=== PATIENT | female | born 1980 | race African-American/Black ===

== ENCOUNTER 2018-07-15 15:17 | Inpatient (IN) | payer MEDICAID ==
[~2018-07-15] VITALS: Ht 165.1 cm; Wt 108.9 kg
--- NOTE | 2018-07-15 15:55 | Emergency Room Report ---
History of Present Illness General Chief Complaint: Vaginal Source: Patient Present Illness HPI 38-year-old female patient presents ER complaining of vaginal discharge and headache. Patient reports vaginal discharge is been present for the past few days. Reports history of similar symptoms in the past, states that her present 2 weeks ago before becoming resolved. Reports no treatment at that time. Reports pain with urinating. Reports pruritus. Reports discharge weight. Denies hematuria. Denies recent sexual activity for "several months". Denies fever, chest pain, shortness of breath, abdominal pain, flank pain. Reports foul-smelling odor. Also complaining of headache during this time for the past few days. Denies neck pain. Denies fever. Reports headache is frontal sinuses. Denies vision changes. Denies vomiting. Denies photophobia or phonophobia. Denies runny nose. patient also requesting her blood sugar rechecked, states she is prediabetic.States was diagnosed "years ago" and has not been taking her medications. States was taking Metformin. Allergies: Coded Allergies: No Known Allergies (Unverified , 07/15/18) Patient History Past Medical History: see triage record Last Menstrual Period: 05/2018 Now: No Reviewed Nursing Documentation: PMH: Agreed; PSxH: Agreed Nursing Documentation-PMH Past Medical History: No History, Except For Hx Diabetes: Yes - Pre diabetic Review of Systems All Other Systems: negative except mentioned in HPI Physical Exam Vital Signs Date Time Temp Pulse Resp B/P (MAP) Pulse Ox O2 Delivery O2 Flow Rate FiO2 07/15/18 15:36 98.4 99 20 153/97 95 Room Air Sp02 EP Interpretation: reviewed, normal General Appearance: well appearing, no apparent distress, alert, GCS 15, non- toxic Head: normocephalic, atraumatic Eyes: bilateral eye normal inspection, bilateral eye PERRL ENT: hearing grossly normal, normal pharynx, no angioedema, normal voice, uvula midline, moist mucus membranes Neck: full range of motion Respiratory: lungs clear, normal breath sounds, no rhonchi, no respiratory distress, no accessory muscle use, no wheezing, speaking full sentences Cardiovascular #1: regular rate, rhythm, no edema Gastrointestinal: non tender, soft, no mass, non-distended, no guarding, no rebound Genitourinary: no CVA tenderness Musculoskeletal: back normal, digits/nails normal, gait/station normal, normal range of motion, non-tender Neurologic: alert, oriented x3, responsive, panel sewer III-XII nml as tested, motor strength/tone normal, SLR negative, sensory intact, cerebellar normal, normal gait, speech normal Psychiatric: mood/affect normal Skin: no rash Medical Decision Making PA Attestation Dr. Funez is my supervising Physician whom patient management has been discussed with. Diagnostic Impression: Primary Impression: Uncontrolled diabetes mellitus Additional Impressions: Elevated lipase Yeast infection ER Course Pt presents to ED c/o vaginal discharge and headache. DDX considered but are not limited to cystitis, pyelonephritis, STI, vaginitis, , migraine, cluster CASTANO, tension CASTANO, UTI, diabetes complications. No abdominal tenderness to palpation, negative classifier operator, negative Thibodeaux, negative Rovsing, low suspicion for cholecystitis or appendicitis, does not require imaging or labs at this time. cranial nerves intact as tested, no focal deficits, low suspicion for intracranial pathology requiring CT head at this time. Normal skin turgor, moist membranes, cap refill less than 2 seconds, no circumoral pallor, low suspicion for anemia. VITAL SIGNS are WNL, patient is afebrile. Ordered UA, labs and fluids. ER COURSE Accucheck 326, provided patient with IV fluids. cranial nerves intact as tested, no focal neuro deficits, likely tension headache, right patient with pain medication in the ER. clinical history consistent with yeast infection, will provide patient with consult in the ER. No abdominal TTP, negative Rovsing, negative Thibodeaux, does not require CT or imaging of abdomen at this time. UA results show no signs of infection, many epithelial cells, no dysuria or hematuria, do not indicate UTI, will treat with abx. Urine negative CBC unremarkable, no elevation of WBCs, H&H normal CMP shows elevated blood glucose, electrolytes WNL Lipase elevated 1243, possible pancreatitis vs diabetic complication. I discuss patient with Dr. Funez, Will admit patient for uncontrolled diabetes and elevated lipase levels. Will provide patient with Rocephin and Azithromycin to cover for possible infection. Provided patient with second unit of IV fluids and metformin in the ER. repeat Accu-Chek shows blood sugar decreasing. Patient reports symptoms improved while in the ER. Patient to be admitted to Dr. Dumont. - Please note that this Emergency Department Report was dictated using [employer] electrical systems specialist technology software, occasionally this can lead to erroneous entry secondary to interpretation by the dictation equipment.Pt Labs Test 07/15/18 16:00 White Blood Count 7.9 K/UL (4.8-10.8) Red Blood Count 5.12 M/UL (4.20-5.40) Hemoglobin 14.3 G/DL (12.0-16.0) Hematocrit 41.7 % (37.0-47.0) Mean Corpuscular Volume 81 FL (80-99) Mean Corpuscular Hemoglobin 27.8 PG (27.0-31.0) Mean Corpuscular Hemoglobin Concent 34.2 G/DL (32.0-36.0) Red Cell Distribution Width 11.6 % (11.6-14.8) Platelet Count 258 K/UL (150-450) Mean Platelet Volume 8.8 FL (6.5-10.1) Neutrophils (%) (Auto) 53.4 % (45.0-75.0) Lymphocytes (%) (Auto) 38.9 % (20.0-45.0) Monocytes (%) (Auto) 3.7 % (1.0-10.0) Eosinophils (%) (Auto) 2.0 % (0.0-3.0) Basophils (%) (Auto) 2.0 % (0.0-2.0) Urine Color Pale yellow Urine Appearance Clear Urine pH 5 (4.5-8.0) Urine Specific [place] 1.015 (1.005-1.035) Urine Protein Negative (NEGATIVE) Urine Glucose (UA) 4+ (NEGATIVE) Urine Ketones 1+ (NEGATIVE) Urine Blood 1+ (NEGATIVE) Urine Nitrite Negative (NEGATIVE) Urine Bilirubin Negative (NEGATIVE) Urine Urobilinogen Normal MG/DL (0.0-1.0) Urine Leukocyte Esterase Negative (NEGATIVE) Urine RBC 2-4 /HPF (0 - 2) Urine WBC 0-2 /HPF (0 - 2) Urine Squamous Epithelial Cells Many /LPF (NONE/OCC) Urine Bacteria Moderate /HPF (NONE) Urine HCG, Qualitative Negative (NEGATIVE) Sodium Level 135 MMOL/L (136-145) Potassium Level 3.7 MMOL/L (3.5-5.1) Chloride Level 100 MMOL/L (98-107) Carbon Dioxide Level 26 MMOL/L (21-32) Anion Gap 9 mmol/L (5-15) Blood Urea Nitrogen 10 mg/dL (7-18) Creatinine 0.9 MG/DL (0.55-1.30) Estimat Glomerular Filtration Rate > 60 mL/min (>60) Glucose Level 325 MG/DL (74-106) Calcium Level 9.5 MG/DL (8.5-10.1) Total Bilirubin 0.2 MG/DL (0.2-1.0) Aspartate Amino Transf (AST/SGOT) 27 U/L (15-37) Alanine Aminotransferase (ALT/SGPT) 48 U/L (12-78) Alkaline Phosphatase 106 U/L (46-116) Total Protein 7.7 G/DL (6.4-8.2) Albumin 3.7 G/DL (3.4-5.0) Globulin 4.0 g/dL Albumin/Globulin Ratio 0.9 (1.0-2.7) Lipase 1243 U/L (73-393) Last Vital Signs Date Time Temp Pulse Resp B/P (MAP) Pulse Ox O2 Delivery O2 Flow Rate FiO2 07/15/18 15:36 98.4 99 20 153/97 95 Room Air Disposition: ADMITTED INPATIENT Condition: Serious Scripts No Active Prescriptions or Reported Meds Boris Ocampo Jul 15, 2018 15:55
[2018-07-15] MEDS ORDERED: Fluconazole 100mg tab ORAL ONE (16:00)
[2018-07-15] MEDS ORDERED: Acetaminophen 500mg (ES) tab ORAL ONE (16:00)
[2018-07-15 16:37] LABS: APPEARANCE,URINE CLEAR; BILIRUBIN, URINE NEGATIVE (NEGATIVE); COLOR,URINE PALE YELLOW; GLUCOSE, URINE (UA) 4+ (NEGATIVE); KETONES,URINE 1+ (NEGATIVE); LEUKOCYTE ESTERASE ,URINE NEGATIVE (NEGATIVE); NITRITE,URINE NEGATIVE (NEGATIVE); PH,URINE 5 (4.5-8.0); PROTEIN,URINE NEGATIVE (NEGATIVE); UROBILINOGEN,URINE NORMAL MG/DL (0.0-1.0)
[2018-07-15 16:44] LABS: HEMATOCRIT 41.7 % (37.0-47.0); HEMOGLOBIN 14.3 G/DL (12.0-16.0); LYMPHOCYTES % (AUTO) 38.9 % (20.0-45.0); MEAN CORPUSCULAR VOLUME 81 FL (80-99); MONOCYTES % (AUTO) 3.7 % (1.0-10.0); NEUTROPHILS % (AUTO) 53.4 % (45.0-75.0); PLATELET COUNT 258 K/UL (150-450); RED BLOOD COUNT 5.12 M/UL (4.20-5.40); RED CELL DISTRIBUTION WIDTH 11.6 % (11.6-14.8); WHITE BLOOD COUNT 7.9 K/UL (4.8-10.8)
[2018-07-15 16:50] LABS: ANION GAP 9 mmol/L (5-15); BLOOD UREA NITROGEN 10 mg/dL (7-18); CALCIUM 9.5 MG/DL (8.5-10.1); CARBON DIOXIDE 26 MMOL/L (21-32); CHLORIDE 100 MMOL/L (98-107); CREATININE 0.9 MG/DL (0.55-1.30); POTASSIUM 3.7 MMOL/L (3.5-5.1); SODIUM 135 MMOL/L (136-145)
[2018-07-15 16:54] LABS: ALANINE AMINOTRANSFERASE 48 U/L (12-78); ALBUMIN 3.7 G/DL (3.4-5.0); ALBUMIN/GLOBULIN RATIO 0.9 (1.0-2.7); ALKALINE PHOSPHATASE 106 U/L (46-116); ASPARTATE AMINO TRANSFERASE 27 U/L (15-37); BILIRUBIN,TOTAL 0.2 MG/DL (0.2-1.0)
[2018-07-15 17:05] VITALS: BP 138/80
[2018-07-15] MEDS ORDERED: Lidocaine 1% MPF 10mg/ml 5ml INJ ONE (17:15)
[2018-07-15] MEDS ORDERED: Azithromycin 250mg tab ORAL ONE (17:15)
[2018-07-15] MEDS: metFORMIN 500mg tab ORAL SCH (17:44)
[2018-07-15 20:30] VITALS: BP 142/91
[2018-07-15] MEDS ORDERED: Ketorolac 30mg Inj IV PRN (20:30)
[2018-07-15] MEDS ORDERED: Miralax 17gm pkt ORAL PRN (20:30)
[2018-07-15] MEDS ORDERED: Mylanta II UD 30ml ORAL PRN (20:30)
[2018-07-15] MEDS ORDERED: Albuterol/Ipratropium 3ml neb HHN PRN (20:30)
[2018-07-15] MEDS ORDERED: Morphine Sulfate 2mg/ml Inj IVP PRN (20:30)
[2018-07-15] MEDS ORDERED: Nitroglycerin Subl 0.4mg tab SL PRN (20:30)
[2018-07-15] MEDS: Heparin 5000 units/ml inj SUBQ SCH ×2 (21:13→21:30)
[2018-07-15] MEDS: NovoLOG Insulin Flexpen SUBQ SCH (21:52)
[2018-07-16] VITALS: BP 139/90
[2018-07-16 04:00] VITALS: BP 135/82
[2018-07-16] MEDS: metFORMIN 500mg tab ORAL SCH ×3 (06:32→17:29)
[2018-07-16] MEDS: NovoLOG Insulin Flexpen SUBQ SCH ×4 (06:35→20:44)
[2018-07-16 07:07] LABS: BASOPHILS % (AUTO) 0.9 % (0.0-2.0); EOSINOPHILS % (AUTO) 2.3 % (0.0-3.0); HEMATOCRIT 41.4 % (37.0-47.0); HEMOGLOBIN 13.5 G/DL (12.0-16.0); LYMPHOCYTES % (AUTO) 36.5 % (20.0-45.0); MEAN CORPUSCULAR VOLUME 80 FL (80-99); MONOCYTES % (AUTO) 6.1 % (1.0-10.0); NEUTROPHILS % (AUTO) 54.3 % (45.0-75.0); PLATELET COUNT 276 K/UL (150-450); RED CELL DISTRIBUTION WIDTH 11.8 % (11.6-14.8); WHITE BLOOD COUNT 6.7 K/UL (4.8-10.8)
[2018-07-16 07:32] LABS: ALANINE AMINOTRANSFERASE 45 U/L (12-78); ALBUMIN 3.1 G/DL (3.4-5.0); ALBUMIN/GLOBULIN RATIO 0.9 (1.0-2.7); ALKALINE PHOSPHATASE 79 U/L (46-116); ANION GAP 6 mmol/L (5-15); ASPARTATE AMINO TRANSFERASE 26 U/L (15-37); BILIRUBIN,TOTAL 0.3 MG/DL (0.2-1.0); BLOOD UREA NITROGEN 7 mg/dL (7-18); CALCIUM 8.6 MG/DL (8.5-10.1); CARBON DIOXIDE 26 MMOL/L (21-32); CHLORIDE 104 MMOL/L (98-107); CHOLESTEROL 214 MG/DL (< 200); CREATININE 0.7 MG/DL (0.55-1.30); HDL CHOLESTEROL 32 MG/DL (40-60); SODIUM 136 MMOL/L (136-145); TRIGLYCERIDES 170 MG/DL (30-150)
[2018-07-16 07:59] VITALS: BP 126/82
[2018-07-16] MEDS: Heparin 5000 units/ml inj SUBQ SCH ×2 (08:31→20:24)
[2018-07-16] MEDS ORDERED: D5 1/2NS 1000ml IV ONE (10:32)
--- NOTE | 2018-07-16 10:41 | Consultation ---
History of Present Illness General Date patient seen: Jul 16, 2018 Chief Complaint: Vaginal Present Illness HPI 38 year old female with hx of "prediabetes" who was suppose to take Metformin presented to ER with CC of dysuria, dizziness. she was diagnosed to have diabetes out of control and admitted for further management. Allergies: Coded Allergies: No Known Allergies (Unverified , 07/15/18) Medication History No Active Prescriptions or Reported Meds Patient History Healthcare decision maker Resuscitation status Full Code Advanced Directive on File Yes Past Medical/Surgical History Past Medical/Surgical History: (1) Pre-diabetes Review of Systems All Other Systems: negative except mentioned in HPI Physical Exam General Appearance: WD/WN Lines, tubes and drains: peripheral HEENT: normocephalic, atraumatic Neck: non-tender, normal alignment Respiratory/Chest: chest wall non-tender, lungs clear Breasts: no masses Cardiovascular/Chest: normal rate Abdomen: normal bowel sounds Genitourinary/Rectal: normal genital exam Last 24 Hour Vital Signs Date Time Temp Pulse Resp B/P (MAP) Pulse Ox O2 Delivery O2 Flow Rate FiO2 07/16/18 09:00 Room Air 07/16/18 07:59 97.9 60 20 126/82 (97) 97 07/16/18 04:00 98.0 90 20 135/82 (99) 97 07/16/18 00:00 97.9 92 20 139/90 (106) 98 07/15/18 22:26 Room Air 07/15/18 21:05 97.6 81 19 135/81 98 Room Air 07/15/18 20:30 97.8 82 20 142/91 (108) 98 07/15/18 17:05 97.6 83 19 138/80 98 Room Air 07/15/18 15:36 98.4 99 20 153/97 95 Room Air Intake and Output 07/15/18 07/16/18 19:00 07:00 Intake Total 1300 ml Balance 1300 ml Intake Oral 400 ml IV Total 900 ml # Voids 2 # Sanitary Pads 1 Laboratory Tests Test 07/15/18 16:00 07/16/18 06:00 White Blood Count 7.9 K/UL (4.8-10.8) 6.7 K/UL (4.8-10.8) Red Blood Count 5.12 M/UL (4.20-5.40) 5.20 M/UL (4.20-5.40) Hemoglobin 14.3 G/DL (12.0-16.0) 13.5 G/DL (12.0-16.0) Hematocrit 41.7 % (37.0-47.0) 41.4 % (37.0-47.0) Mean Corpuscular Volume 81 FL (80-99) 80 FL (80-99) Mean Corpuscular Hemoglobin 27.8 PG (27.0-31.0) 26.0 PG (27.0-31.0) L Mean Corpuscular Hemoglobin Concent 34.2 G/DL (32.0-36.0) 32.7 G/DL (32.0-36.0) Red Cell Distribution Width 11.6 % (11.6-14.8) 11.8 % (11.6-14.8) Platelet Count 258 K/UL (150-450) 276 K/UL (150-450) Mean Platelet Volume 8.8 FL (6.5-10.1) 8.3 FL (6.5-10.1) Neutrophils (%) (Auto) 53.4 % (45.0-75.0) 54.3 % (45.0-75.0) Lymphocytes (%) (Auto) 38.9 % (20.0-45.0) 36.5 % (20.0-45.0) Monocytes (%) (Auto) 3.7 % (1.0-10.0) 6.1 % (1.0-10.0) Eosinophils (%) (Auto) 2.0 % (0.0-3.0) 2.3 % (0.0-3.0) Basophils (%) (Auto) 2.0 % (0.0-2.0) 0.9 % (0.0-2.0) Urine Color Pale yellow Urine Appearance Clear Urine pH 5 (4.5-8.0) Urine Specific [place] 1.015 (1.005-1.035) Urine Protein Negative (NEGATIVE) Urine Glucose (UA) 4+ (NEGATIVE) H Urine Ketones 1+ (NEGATIVE) H Urine Blood 1+ (NEGATIVE) H Urine Nitrite Negative (NEGATIVE) Urine Bilirubin Negative (NEGATIVE) Urine Urobilinogen Normal MG/DL (0.0-1.0) Urine Leukocyte Esterase Negative (NEGATIVE) Urine RBC 2-4 /HPF (0 - 2) H Urine WBC 0-2 /HPF (0 - 2) Urine Squamous Epithelial Cells Many /LPF (NONE/OCC) H Urine Bacteria Moderate /HPF (NONE) H Urine HCG, Qualitative Negative (NEGATIVE) Sodium Level 135 MMOL/L (136-145) L 136 MMOL/L (136-145) Potassium Level 3.7 MMOL/L (3.5-5.1) 4.0 MMOL/L (3.5-5.1) Chloride Level 100 MMOL/L (98-107) 104 MMOL/L (98-107) Carbon Dioxide Level 26 MMOL/L (21-32) 26 MMOL/L (21-32) Anion Gap 9 mmol/L (5-15) 6 mmol/L (5-15) Blood Urea Nitrogen 10 mg/dL (7-18) 7 mg/dL (7-18) Creatinine 0.9 MG/DL (0.55-1.30) 0.7 MG/DL (0.55-1.30) Estimat Glomerular Filtration Rate > 60 mL/min (>60) > 60 mL/min (>60) Glucose Level 325 MG/DL (74-106) H 256 MG/DL (74-106) H Calcium Level 9.5 MG/DL (8.5-10.1) 8.6 MG/DL (8.5-10.1) Total Bilirubin 0.2 MG/DL (0.2-1.0) 0.3 MG/DL (0.2-1.0) Aspartate Amino Transf (AST/SGOT) 27 U/L (15-37) 26 U/L (15-37) Alanine Aminotransferase (ALT/SGPT) 48 U/L (12-78) 45 U/L (12-78) Alkaline Phosphatase 106 U/L (46-116) 79 U/L (46-116) Total Protein 7.7 G/DL (6.4-8.2) 6.7 G/DL (6.4-8.2) Albumin 3.7 G/DL (3.4-5.0) 3.1 G/DL (3.4-5.0) L Globulin 4.0 g/dL 3.6 g/dL Albumin/Globulin Ratio 0.9 (1.0-2.7) L 0.9 (1.0-2.7) L Lipase 1243 U/L (73-393) H Hemoglobin A1c 11.3 % (4.3-6.0) H Triglycerides Level 170 MG/DL (30-150) H Cholesterol Level 214 MG/DL (< 200) H LDL Cholesterol 152 mg/dL (<100) H HDL Cholesterol 32 MG/DL (40-60) L Cholesterol/HDL Ratio 6.7 (3.3-4.4) H Thyroid Stimulating Hormone (TSH) 3.262 uiU/mL (0.358-3.740) Height (Feet): 5 Height (Inches): 5.00 Weight (Pounds): 240 Medications Current Medications Medications (Trade) Dose Ordered Sig/Sergio Route PRN Reason Start Time Stop Time Status Last Admin Dose Admin Acetaminophen (Tylenol) 650 mg Q4H PRN ORAL fever 07/15/18 20:30 08/14/18 20:29 Al Hydroxide/Mg Hydroxide (Mylanta II) 30 ml Q6H PRN ORAL dyspepsia 07/15/18 20:30 08/14/18 20:29 Albuterol/ Ipratropium (Albuterol/ Ipratropium) 3 ml Q4H PRN HHN Shortness of Breath 07/15/18 20:30 07/20/18 20:29 Clonidine HCl (Catapres Tab) 0.1 mg Q4H PRN ORAL sbp more than 160 07/15/18 20:30 08/14/18 20:29 Dextrose (Dextrose 50%) 25 ml Q30M PRN IV Hypoglycemia 07/15/18 20:30 08/14/18 20:29 Dextrose (Dextrose 50%) 50 ml Q30M PRN IV Hypoglycemia 07/15/18 20:30 08/14/18 20:29 Heparin Sodium (Porcine) (Heparin 5000 units/ml) 5,000 units EVERY 12 HOURS SUBQ 07/15/18 21:00 08/14/18 20:59 Insulin Aspart (NovoLOG) BEFORE MEALS AND HS SUBQ 07/15/18 21:00 08/14/18 20:59 07/16/18 06:35 Ketorolac Tromethamine (Toradol 30mg) 30 mg Q6H PRN IV moderate pain 4-6 07/15/18 20:30 07/20/18 20:29 Metformin HCl (Glucophage) 500 mg TIAC ORAL 07/15/18 17:15 08/14/18 17:14 07/16/18 06:32 Morphine Sulfate (Morphine Sulfate) 2 mg Q4H PRN IVP severe pain 7-10 07/15/18 20:30 07/22/18 20:29 Nitroglycerin (Ntg) 0.4 mg Q5M X 3 DOSES PRN SL Prn Chest Pain 07/15/18 20:30 08/14/18 20:29 Ondansetron HCl (Zofran) 4 mg Q6H PRN IVP Nausea & Vomiting 07/15/18 20:30 08/14/18 20:29 Polyethylene Glycol (Miralax) 17 gm HSPRN PRN ORAL Constipation 07/15/18 20:30 08/14/18 20:29 Sodium Chloride 1,000 ml @ 100 mls/hr Q10H IVLG 07/15/18 20:24 08/14/18 20:23 07/16/18 06:29 Temazepam (Restoril) 15 mg HSPRN PRN ORAL Insomnia 07/15/18 20:30 07/22/18 20:29 Assessment/Plan Problem List: (1) Uncontrolled diabetes mellitus ICD Codes: E11.65 - Type 2 diabetes mellitus with hyperglycemia SNOMED: 175486334, 44402926 (2) UTI (urinary tract infection) ICD Codes: N39.0 - Urinary tract infection, site not specified SNOMED: 09268648 (3) Vaginitis ICD Codes: N76.0 - Acute vaginitis SNOMED: 90479161 Assessment/Plan sliding scale iv abx check urine cultures Endo evaluation Lawrence Rai MD Jul 16, 2018 10:40
[2018-07-16] MEDS ORDERED: Fluconazole 100mg tab ORAL SCH ×2 (11:00→16:00)
[2018-07-16 11:46] VITALS: BP 143/82
--- NOTE | 2018-07-16 15:15 | Consultation ---
Consult Note Consult Note # [id number] Chris Collins MD Jul 16, 2018 15:15
--- NOTE | 2018-07-16 15:58 | History & Physical ---
History and Physical History & Physicial Ga Dumont MD Jul 16, 2018 15:58
[2018-07-16 16:00] VITALS: BP 147/82
--- NOTE | 2018-07-16 18:45 | Consultation ---
DATE OF CONSULTATION: 07/16/2018 INFECTIOUS DISEASE CONSULTATION CONSULTING PHYSICIAN: Chris Collins M.D. REQUESTING PHYSICIANS: 1. Lawrence Rai M.D. 2. Ga Dumont M.D. REASON FOR CONSULTATION: Evaluation of the patient for vaginitis, antibiotic management. HISTORY OF PRESENT ILLNESS: The patient is a 38-year-old female with multiple medical problems, as listed below, including diabetes, who was admitted to this medical center with uncontrolled diabetes. Also, the patient has history of vaginal discharge (cheesy in consistency, white, pruritic), non-malodors discharge, who has not taken any antibiotics recently. Infectious Disease consultation has been requested for further evaluation of the patient and possible need for antibiotic treatment. PAST MEDICAL HISTORY: 1. Diabetes. 2. Obesity. MEDICATIONS: Diflucan 100 mg daily. ALLERGIES: No known drug allergies. SOCIAL HISTORY: Negative for smoking, alcohol, or drug abuse. FAMILY HISTORY: Not contributing. PHYSICAL EXAMINATION: VITAL SIGNS: Temperature 97.9, pulse 86, respiratory rate 18, and blood pressure 142/82. HEENT: No pale conjunctivae. No icterus. NECK: No lymphadenopathy. CHEST: Clear. HEART: S1 and S2. ABDOMEN: Soft and obese. EXTREMITIES: No cyanosis. NEUROLOGIC: Awake and alert. LABORATORY AND DIAGNOSTIC DATA: White blood cells 6.7, hemoglobin 13, and platelets 276,000. UA, unremarkable. BUN 7 and creatinine 0.6. ALT, AST, and alkaline phosphatase are unremarkable. Urine culture is pending. ASSESSMENT: The patient is a 38-year-old female with, 1. Sarai vaginitis (based on the patient's history). 2. Obesity. 3. Diabetes. 4. Afebrile. 5. Normal white blood cells. PLAN: 1. We will continue the patient on Diflucan 150 mg daily, (hold daily doses of 100 mg). 2. Management of diabetes per primary. 3. Monitor urine culture. 4. Monitor CBC. 5. Based on the patient's clinical course and labs, we will do further recommendation. Thank you, Dr. Rai, for allowing me to participate in the care of this patient. I will follow the patient with you during this hospitalization. Chris Collins M.D. DR: RAJWINDER JOB#: [id number] CC:
--- NOTE | 2018-07-16 19:00 | History and Physical Report ---
DATE OF ADMISSION: 07/15/2018 CHIEF COMPLAINT: Vaginal discharge as well as headache. HISTORY OF PRESENT ILLNESS: This is a 38-year-old, morbid obese female, denies any past medical history and past surgical history, was told to take the metformin for diabetes; however, she was noncompliant. She presented to the hospital complaining about vaginal discharge and headache. It has been going on for few days. She had similar symptoms in the past. She presented to the hospital two weeks ago, she had the symptoms and resolved. She complained about pruritus. She denies any loss of consciousness. No fever or chills. Shortly after initial evaluation in the emergency, the patient was admitted to the hospital with uncontrolled diabetes and elevated lipase. PAST MEDICAL HISTORY AND PAST SURGICAL HISTORY: As above. History of morbid obesity and ? diabetes type 2. In the past, was said prediabetic. MEDICATIONS: At home none. ALLERGIES: No known drug allergies. SOCIAL HISTORY: No smoking, alcohol, or drugs. FAMILY HISTORY: Noncontributory. REVIEW OF SYSTEMS: Mostly as above. Denies any dysuria, frequency, or hematuria. Denies any hemoptysis or hematochezia. Denies any suicidal or homicidal ideation. PHYSICAL EXAMINATION: VITAL SIGNS: On admission, temperature 98.4, pulse of 99, respirations 20, and blood pressure 153/97. GENERAL: The patient is awake, responsive, not in no acute distress. HEAD AND NECK: Pupils are equal and reactive to light. Extraocular movements are intact. Neck was supple. No JVD. LUNGS: Good air entry. No wheezing or rales. HEART: S1, S2. Regular rhythm. No gallops. Distant heart sounds. ABDOMEN: Soft and nondistended. Morbidly obese. EXTREMITIES: No cyanosis, clubbing, or edema. NEUROLOGIC: Cranial nerves II through XII grossly intact. Motor is 5/5 in all extremities. LABORATORY ON ADMISSION: Sodium 135, potassium 3.7, chloride 100, bicarbonate 26, BUN 10, creatinine 0.9, and glucose is 325. Albumin is 3.7. Lipase is 1243. WBC of 7.9, hemoglobin of 14, hematocrit 41, and platelets 253. Urinalysis +4 glucose, +1 ketone, +1 blood, moderate bacteria, many epithelial cells. ASSESSMENT: 1. Uncontrolled diabetes. 2. Elevated lipase, possible pancreatitis. 3. Morbid obesity. PLAN: Admit the patient to medical floor. IV hydration. Monitor blood glucose level closely. Suppression on metformin. Discussed with Dr. Rai as well as Dr. Chris Collins. We will follow up with the laboratory in the morning. Ga Dumont M.D. DR: GUICHO JOB#: [id number] CC:
[2018-07-16 19:52] VITALS: BP 134/89
[2018-07-17] VITALS (7 sets, daily range): BP systolic 131–144; BP diastolic 82–96
[2018-07-17] MEDS: metFORMIN 500mg tab ORAL SCH ×3 (06:53→17:29)
[2018-07-17] MEDS: NovoLOG Insulin Flexpen SUBQ SCH ×4 (06:55→20:34)
--- NOTE | 2018-07-17 07:58 | Infectious Diseases Prog Note ---
Assessment/Plan Assessment/Plan HEENT: No pale conjunctivae. No icterus. NECK: No lymphadenopathy. CHEST: Clear. HEART: S1 and S2. ABDOMEN: Soft and obese. EXTREMITIES: No cyanosis. NEUROLOGIC: Awake and alert. LABORATORY AND DIAGNOSTIC DATA: White blood cells 6.7, hemoglobin 13, and platelets 276,000. UA, unremarkable. BUN 7 and creatinine 0.6. ALT, AST, and alkaline phosphatase are unremarkable. Urine culture is pending. ASSESSMENT: The patient is a 38-year-old female with, Sarai vaginitis (based on the patient's history). Obesity. Diabetes. Afebrile. Normal white blood cells. PLAN: - We will continue the patient on Diflucan 150 mg daily #2, (hold daily doses of 100 mg). - Management of diabetes per primary. - Monitor urine culture. - Monitor CBC. - Based on the patient's clinical course and labs, we will do further recommendation. I will follow the patient with you during this hospitalization. Subjective Allergies: Coded Allergies: No Known Allergies (Unverified , 07/15/18) Subjective Patient reports feeling well No fevers Objective Vital Signs Last 24 Hour Vital Signs Date Time Temp Pulse Resp B/P (MAP) Pulse Ox O2 Delivery O2 Flow Rate FiO2 07/17/18 04:00 97.5 77 19 131/85 (100) 97 07/17/18 00:16 98.7 74 20 132/88 (103) 97 07/16/18 21:14 Room Air 07/16/18 20:27 87 20 Room Air 21 07/16/18 19:52 98.2 79 20 134/89 (104) 97 07/16/18 16:00 98.0 85 20 147/82 (103) 97 07/16/18 11:46 98.8 80 20 143/82 (102) 97 07/16/18 09:00 Room Air 07/16/18 07:59 97.9 60 20 126/82 (97) 97 Height (Feet): 5 Height (Inches): 5.00 Weight (Pounds): 240 Objective HEENT: NCAT, MMM, No icterus. CHEST: CTAB HEART: S1 and S2. ABDOMEN: Soft and obese. EXTREMITIES: No cyanosis. NEUROLOGIC: Awake and alert. Microbiology Date/Time Source Procedure Growth Status 07/15/18 16:00 Urine,Clean Catch Urine Culture - Final Mixed Urogenital Contaminants Complete Current Medications Medications (Trade) Dose Ordered Sig/Sergio Route PRN Reason Start Time Stop Time Status Last Admin Dose Admin Acetaminophen (Tylenol) 650 mg Q4H PRN ORAL fever 07/15/18 20:30 08/14/18 20:29 Al Hydroxide/Mg Hydroxide (Mylanta II) 30 ml Q6H PRN ORAL dyspepsia 07/15/18 20:30 08/14/18 20:29 Albuterol/ Ipratropium (Albuterol/ Ipratropium) 3 ml Q4H PRN HHN Shortness of Breath 07/15/18 20:30 07/20/18 20:29 Clonidine HCl (Catapres Tab) 0.1 mg Q4H PRN ORAL sbp more than 160 07/15/18 20:30 08/14/18 20:29 Dextrose (Dextrose 50%) 25 ml Q30M PRN IV Hypoglycemia 07/15/18 20:30 08/14/18 20:29 Dextrose (Dextrose 50%) 50 ml Q30M PRN IV Hypoglycemia 07/15/18 20:30 08/14/18 20:29 Heparin Sodium (Porcine) (Heparin 5000 units/ml) 5,000 units EVERY 12 HOURS SUBQ 07/15/18 21:00 08/14/18 20:59 Insulin Aspart (NovoLOG) BEFORE MEALS AND HS SUBQ 07/15/18 21:00 08/14/18 20:59 07/17/18 06:55 Ketorolac Tromethamine (Toradol 30mg) 30 mg Q6H PRN IV moderate pain 4-6 07/15/18 20:30 07/20/18 20:29 Metformin HCl (Glucophage) 500 mg TIAC ORAL 07/15/18 17:15 08/14/18 17:14 07/17/18 06:53 Morphine Sulfate (Morphine Sulfate) 2 mg Q4H PRN IVP severe pain 7-10 07/15/18 20:30 07/22/18 20:29 Nitroglycerin (Ntg) 0.4 mg Q5M X 3 DOSES PRN SL Prn Chest Pain 07/15/18 20:30 08/14/18 20:29 Ondansetron HCl (Zofran) 4 mg Q6H PRN IVP Nausea & Vomiting 07/15/18 20:30 08/14/18 20:29 Polyethylene Glycol (Miralax) 17 gm HSPRN PRN ORAL Constipation 07/15/18 20:30 08/14/18 20:29 Sodium Chloride 1,000 ml @ 100 mls/hr Q10H IVLG 07/15/18 20:24 08/14/18 20:23 07/17/18 01:45 Temazepam (Restoril) 15 mg HSPRN PRN ORAL Insomnia 07/15/18 20:30 07/22/18 20:29 Dimitri Castellon MD Jul 17, 2018 07:58
[2018-07-17 08:21] LABS: EOSINOPHILS % (AUTO) 2.7 % (0.0-3.0); HEMATOCRIT 41.2 % (37.0-47.0); HEMOGLOBIN 13.6 G/DL (12.0-16.0); LYMPHOCYTES % (AUTO) 37.2 % (20.0-45.0); MEAN CORPUSCULAR VOLUME 80 FL (80-99); MONOCYTES % (AUTO) 5.2 % (1.0-10.0); NEUTROPHILS % (AUTO) 53.9 % (45.0-75.0); PLATELET COUNT 267 K/UL (150-450); RED BLOOD COUNT 5.14 M/UL (4.20-5.40); RED CELL DISTRIBUTION WIDTH 11.9 % (11.6-14.8); WHITE BLOOD COUNT 6.4 K/UL (4.8-10.8)
[2018-07-17] MEDS: Heparin 5000 units/ml inj SUBQ SCH ×2 (08:28→20:39)
[2018-07-17 08:43] LABS: ALANINE AMINOTRANSFERASE 56 U/L (12-78); ALBUMIN 3.3 G/DL (3.4-5.0); ALBUMIN/GLOBULIN RATIO 0.9 (1.0-2.7); ALKALINE PHOSPHATASE 76 U/L (46-116); ANION GAP 6 mmol/L (5-15); ASPARTATE AMINO TRANSFERASE 46 U/L (15-37); BILIRUBIN,TOTAL 0.4 MG/DL (0.2-1.0); BLOOD UREA NITROGEN 6 mg/dL (7-18); CALCIUM 8.6 MG/DL (8.5-10.1); CARBON DIOXIDE 28 MMOL/L (21-32); CHLORIDE 103 MMOL/L (98-107); CREATININE 0.8 MG/DL (0.55-1.30); PHOSPHORUS 3.2 MG/DL (2.5-4.9); POTASSIUM 3.7 MMOL/L (3.5-5.1); SODIUM 137 MMOL/L (136-145)
[2018-07-17] MEDS: Fluconazole 100mg tab ORAL SCH (09:03)
--- NOTE | 2018-07-17 13:44 | Internal Med Progress Note ---
Subjective Date of Service: Jul 17, 2018 Physician Name Vaughn Apodaca Attending Physician Ga Dumont MD Current Medications Medications (Trade) Dose Ordered Sig/Sergio Route PRN Reason Start Time Stop Time Status Last Admin Dose Admin Acetaminophen (Tylenol) 650 mg Q4H PRN ORAL fever 07/15/18 20:30 08/14/18 20:29 Al Hydroxide/Mg Hydroxide (Mylanta II) 30 ml Q6H PRN ORAL dyspepsia 07/15/18 20:30 08/14/18 20:29 Albuterol/ Ipratropium (Albuterol/ Ipratropium) 3 ml Q4H PRN HHN Shortness of Breath 07/15/18 20:30 07/20/18 20:29 Clonidine HCl (Catapres Tab) 0.1 mg Q4H PRN ORAL sbp more than 160 07/15/18 20:30 08/14/18 20:29 Dextrose (Dextrose 50%) 25 ml Q30M PRN IV Hypoglycemia 07/15/18 20:30 08/14/18 20:29 Dextrose (Dextrose 50%) 50 ml Q30M PRN IV Hypoglycemia 07/15/18 20:30 08/14/18 20:29 Fluconazole (Diflucan) 150 mg DAILY ORAL 07/17/18 09:00 07/24/18 08:59 07/17/18 09:03 Heparin Sodium (Porcine) (Heparin 5000 units/ml) 5,000 units EVERY 12 HOURS SUBQ 07/15/18 21:00 08/14/18 20:59 Insulin Aspart (NovoLOG) BEFORE MEALS AND HS SUBQ 07/15/18 21:00 08/14/18 20:59 07/17/18 12:13 Ketorolac Tromethamine (Toradol 30mg) 30 mg Q6H PRN IV moderate pain 4-6 07/15/18 20:30 07/20/18 20:29 Metformin HCl (Glucophage) 500 mg TIAC ORAL 07/15/18 17:15 08/14/18 17:14 07/17/18 12:12 Morphine Sulfate (Morphine Sulfate) 2 mg Q4H PRN IVP severe pain 7-10 07/15/18 20:30 07/22/18 20:29 Nitroglycerin (Ntg) 0.4 mg Q5M X 3 DOSES PRN SL Prn Chest Pain 07/15/18 20:30 08/14/18 20:29 Ondansetron HCl (Zofran) 4 mg Q6H PRN IVP Nausea & Vomiting 07/15/18 20:30 08/14/18 20:29 Polyethylene Glycol (Miralax) 17 gm HSPRN PRN ORAL Constipation 07/15/18 20:30 08/14/18 20:29 Sodium Chloride 1,000 ml @ 100 mls/hr Q10H IVLG 07/15/18 20:24 08/14/18 20:23 07/17/18 01:45 Temazepam (Restoril) 15 mg HSPRN PRN ORAL Insomnia 07/15/18 20:30 07/22/18 20:29 Allergies: Coded Allergies: No Known Allergies (Unverified , 07/15/18) ROS Limited/Unobtainable: No Constitutional: Reports: no symptoms HEENT: Reports: no symptoms Cardiovascular: Reports: no symptoms Respiratory: Reports: no symptoms Gastrointestinal/Abdominal: Reports: no symptoms Genitourinary: Reports: no symptoms Neurologic/Psychiatric: Reports: no symptoms Subjective 38 YO F admitted with vaginitis and headache. Now new onset diabetes. Cover for Int Med-Dr Dumont. Objective Last Vital Signs Date Time Temp Pulse Resp B/P (MAP) Pulse Ox O2 Delivery O2 Flow Rate FiO2 07/17/18 09:00 Room Air 07/17/18 08:00 97.7 83 18 141/88 (105) 100 07/16/18 20:27 21 General Appearance: WD/WN, no apparent distress, alert, obese EENT: PERRL/EOMI, normal ENT inspection, TMs normal Neck: non-tender, normal alignment, supple, normal inspection Cardiovascular: normal peripheral pulses, normal rate, regular rhythm, no gallop/murmur, no JVD Respiratory/Chest: chest wall non-tender, lungs clear, normal breath sounds, no respiratory distress, no accessory muscle use Abdomen: normal bowel sounds, non tender, soft, no organomegaly, no mass Extremities: normal range of motion, non-tender 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, no motor/sensory deficits Skin: normal pigmentation, warm/dry Laboratory Tests Test 07/17/18 06:10 White Blood Count 6.4 K/UL (4.8-10.8) Red Blood Count 5.14 M/UL (4.20-5.40) Hemoglobin 13.6 G/DL (12.0-16.0) Hematocrit 41.2 % (37.0-47.0) Mean Corpuscular Volume 80 FL (80-99) Mean Corpuscular Hemoglobin 26.5 PG (27.0-31.0) L Mean Corpuscular Hemoglobin Concent 33.0 G/DL (32.0-36.0) Red Cell Distribution Width 11.9 % (11.6-14.8) Platelet Count 267 K/UL (150-450) Mean Platelet Volume 8.4 FL (6.5-10.1) Neutrophils (%) (Auto) 53.9 % (45.0-75.0) Lymphocytes (%) (Auto) 37.2 % (20.0-45.0) Monocytes (%) (Auto) 5.2 % (1.0-10.0) Eosinophils (%) (Auto) 2.7 % (0.0-3.0) Basophils (%) (Auto) 1.0 % (0.0-2.0) Sodium Level 137 MMOL/L (136-145) Potassium Level 3.7 MMOL/L (3.5-5.1) Chloride Level 103 MMOL/L (98-107) Carbon Dioxide Level 28 MMOL/L (21-32) Anion Gap 6 mmol/L (5-15) Blood Urea Nitrogen 6 mg/dL (7-18) L Creatinine 0.8 MG/DL (0.55-1.30) Estimat Glomerular Filtration Rate > 60 mL/min (>60) Glucose Level 214 MG/DL (74-106) H Calcium Level 8.6 MG/DL (8.5-10.1) Phosphorus Level 3.2 MG/DL (2.5-4.9) Magnesium Level 1.6 MG/DL (1.8-2.4) L Total Bilirubin 0.4 MG/DL (0.2-1.0) Aspartate Amino Transf (AST/SGOT) 46 U/L (15-37) H Alanine Aminotransferase (ALT/SGPT) 56 U/L (12-78) Alkaline Phosphatase 76 U/L (46-116) Total Protein 6.9 G/DL (6.4-8.2) Albumin 3.3 G/DL (3.4-5.0) L Globulin 3.6 g/dL Albumin/Globulin Ratio 0.9 (1.0-2.7) L Microbiology Date/Time Source Procedure Growth Status 07/15/18 16:00 Urine,Clean Catch Urine Culture - Final Mixed Urogenital Contaminants Complete Intake and Output 07/16/18 07/17/18 19:00 07:00 Intake Total 1280 ml 1000 ml Balance 1280 ml 1000 ml Intake Oral 1180 ml IV Total 100 ml 1000 ml # Voids 5 Assessment/Plan Problem List: (1) Candidiasis of vulva and vagina Assessment & Plan: Continue diflucan per ID (2) Vaginitis (3) Uncontrolled diabetes mellitus Assessment & Plan: New Onset. Continue metformin and novolog sliding scale. (4) Elevated lipase Status: progressing Vaughn Apodaca MD Jul 17, 2018 13:44
[2018-07-18] VITALS (7 sets, daily range): BP systolic 123–152; BP diastolic 82–100
[2018-07-18 05:06] LABS: BASOPHILS % (AUTO) 1.3 % (0.0-2.0); EOSINOPHILS % (AUTO) 3.2 % (0.0-3.0); HEMATOCRIT 44.5 % (37.0-47.0); HEMOGLOBIN 14.6 G/DL (12.0-16.0); LYMPHOCYTES % (AUTO) 36.9 % (20.0-45.0); MEAN CORPUSCULAR VOLUME 80 FL (80-99); NEUTROPHILS % (AUTO) 52.7 % (45.0-75.0); PLATELET COUNT 289 K/UL (150-450); RED BLOOD COUNT 5.54 M/UL (4.20-5.40); RED CELL DISTRIBUTION WIDTH 11.8 % (11.6-14.8); WHITE BLOOD COUNT 7.3 K/UL (4.8-10.8)
[2018-07-18] MEDS: metFORMIN 500mg tab ORAL SCH ×3 (06:04→17:03)
[2018-07-18] MEDS: NovoLOG Insulin Flexpen SUBQ SCH ×4 (06:07→20:02)
[2018-07-18 06:30] LABS: ANION GAP 9 mmol/L (5-15); BLOOD UREA NITROGEN 9 mg/dL (7-18); CALCIUM 9.4 MG/DL (8.5-10.1); CARBON DIOXIDE 24 MMOL/L (21-32); CHLORIDE 102 MMOL/L (98-107); CREATININE 0.8 MG/DL (0.55-1.30); POTASSIUM 3.9 MMOL/L (3.5-5.1); SODIUM 135 MMOL/L (136-145)
[2018-07-18] MEDS: Fluconazole 100mg tab ORAL SCH (08:52)
[2018-07-18] MEDS: Heparin 5000 units/ml inj SUBQ SCH ×2 (08:54→20:04)
[2018-07-18] MEDS: Levemir Flexpen SUBQ SCH (11:09)
--- NOTE | 2018-07-18 15:12 | Internal Med Progress Note ---
Subjective Date of Service: Jul 18, 2018 Physician Name Vaughn Apodaca Attending Physician Ga Dumont MD Current Medications Medications (Trade) Dose Ordered Sig/Sergio Route PRN Reason Start Time Stop Time Status Last Admin Dose Admin Acetaminophen (Tylenol) 650 mg Q4H PRN ORAL fever 07/15/18 20:30 08/14/18 20:29 07/18/18 10:26 Al Hydroxide/Mg Hydroxide (Mylanta II) 30 ml Q6H PRN ORAL dyspepsia 07/15/18 20:30 08/14/18 20:29 Albuterol/ Ipratropium (Albuterol/ Ipratropium) 3 ml Q4H PRN HHN Shortness of Breath 07/15/18 20:30 07/20/18 20:29 Clonidine HCl (Catapres Tab) 0.1 mg Q4H PRN ORAL sbp more than 160 07/15/18 20:30 08/14/18 20:29 Dextrose (Dextrose 50%) 25 ml Q30M PRN IV Hypoglycemia 07/18/18 10:15 08/17/18 10:14 Dextrose (Dextrose 50%) 50 ml Q30M PRN IV Hypoglycemia 07/18/18 10:15 08/17/18 10:14 Fluconazole (Diflucan) 150 mg DAILY ORAL 07/17/18 09:00 07/24/18 08:59 07/18/18 08:52 Heparin Sodium (Porcine) (Heparin 5000 units/ml) 5,000 units EVERY 12 HOURS SUBQ 07/15/18 21:00 08/14/18 20:59 Insulin Aspart (NovoLOG) BEFORE MEALS AND HS SUBQ 07/15/18 21:00 08/14/18 20:59 07/18/18 12:00 Insulin Detemir (Levemir) 14 units DAILY SUBQ 07/18/18 11:00 08/17/18 10:59 07/18/18 11:09 Ketorolac Tromethamine (Toradol 30mg) 30 mg Q6H PRN IV moderate pain 4-6 07/15/18 20:30 07/20/18 20:29 Metformin HCl (Glucophage) 500 mg TIAC ORAL 07/15/18 17:15 08/14/18 17:14 07/18/18 11:59 Morphine Sulfate (Morphine Sulfate) 2 mg Q4H PRN IVP severe pain 7-10 07/15/18 20:30 07/22/18 20:29 Nitroglycerin (Ntg) 0.4 mg Q5M X 3 DOSES PRN SL Prn Chest Pain 07/15/18 20:30 08/14/18 20:29 Ondansetron HCl (Zofran) 4 mg Q6H PRN IVP Nausea & Vomiting 07/15/18 20:30 08/14/18 20:29 Polyethylene Glycol (Miralax) 17 gm HSPRN PRN ORAL Constipation 07/15/18 20:30 08/14/18 20:29 Sodium Chloride 1,000 ml @ 100 mls/hr Q10H IVLG 07/15/18 20:24 08/14/18 20:23 07/17/18 12:24 Temazepam (Restoril) 15 mg HSPRN PRN ORAL Insomnia 07/15/18 20:30 07/22/18 20:29 Allergies: Coded Allergies: No Known Allergies (Unverified , 07/15/18) Subjective 38 YO F admitted with vaginitis and headache. Now new onset diabetes. Cover for Int Med-Dr Dumont. Objective Last Vital Signs Date Time Temp Pulse Resp B/P (MAP) Pulse Ox O2 Delivery O2 Flow Rate FiO2 07/18/18 12:00 97.5 89 20 152/100 (117) 97 07/18/18 09:15 Room Air 07/18/18 08:19 21 Laboratory Tests Test 07/18/18 04:50 White Blood Count 7.3 K/UL (4.8-10.8) Red Blood Count 5.54 M/UL (4.20-5.40) H Hemoglobin 14.6 G/DL (12.0-16.0) Hematocrit 44.5 % (37.0-47.0) Mean Corpuscular Volume 80 FL (80-99) Mean Corpuscular Hemoglobin 26.3 PG (27.0-31.0) L Mean Corpuscular Hemoglobin Concent 32.7 G/DL (32.0-36.0) Red Cell Distribution Width 11.8 % (11.6-14.8) Platelet Count 289 K/UL (150-450) Mean Platelet Volume 7.9 FL (6.5-10.1) Neutrophils (%) (Auto) 52.7 % (45.0-75.0) Lymphocytes (%) (Auto) 36.9 % (20.0-45.0) Monocytes (%) (Auto) 6.0 % (1.0-10.0) Eosinophils (%) (Auto) 3.2 % (0.0-3.0) H Basophils (%) (Auto) 1.3 % (0.0-2.0) Sodium Level 135 MMOL/L (136-145) L Potassium Level 3.9 MMOL/L (3.5-5.1) Chloride Level 102 MMOL/L (98-107) Carbon Dioxide Level 24 MMOL/L (21-32) Anion Gap 9 mmol/L (5-15) Blood Urea Nitrogen 9 mg/dL (7-18) Creatinine 0.8 MG/DL (0.55-1.30) Estimat Glomerular Filtration Rate > 60 mL/min (>60) Glucose Level 234 MG/DL (74-106) H Calcium Level 9.4 MG/DL (8.5-10.1) Lipase 943 U/L (73-393) H Microbiology Date/Time Source Procedure Growth Status 07/15/18 16:00 Urine,Clean Catch Urine Culture - Final Mixed Urogenital Contaminants Complete Intake and Output 07/17/18 07/18/18 19:00 07:00 Intake Total 800 ml 800 ml Balance 800 ml 800 ml Intake Oral 800 ml 800 ml # Voids 7 4 Objective General Appearance: WD/WN, no apparent distress, alert, obese EENT: PERRL/EOMI, normal ENT inspection, TMs normal Neck: non-tender, normal alignment, supple, normal inspection Cardiovascular: normal peripheral pulses, normal rate, regular rhythm, no gallop/murmur, no JVD Respiratory/Chest: chest wall non-tender, lungs clear, normal breath sounds, no respiratory distress, no accessory muscle use Abdomen: normal bowel sounds, non tender, soft, no organomegaly, no mass Extremities: normal range of motion, non-tender 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 Continue metformin and novolog sliding scale. (4) Elevated lipase Status: progressing Vaughn Apodaca MD Jul 18, 2018 15:12
--- NOTE | 2018-07-18 22:59 | Consultation ---
DATE OF CONSULTATION: 07/18/2018 ENDOCRINOLOGY CONSULTATION CONSULTING PHYSICIAN: Tra Valdez M.D. REFERRING PHYSICIAN: Ga Dumont M.D. REASON FOR CONSULTATION: New onset diabetes. HISTORY OF PRESENT ILLNESS: The patient is a 38-year-old female with history of prediabetes, who presented to the hospital with vaginal discharge, diagnosed with vaginal candidiasis. Glucose was out of control, admitted for observation and treatment. Glucose on presentation was as high as 325 with an A1c of 11.3. Lipase is up to 1243 on presentation. She denies abdominal pain. LDL is 152. I was called to manage diabetes. PAST MEDICAL HISTORY: Prediabetes. PAST SURGICAL HISTORY: None. MEDICATIONS: As an outpatient none. ALLERGIES: Allergies to medications, none. FAMILY HISTORY: Diabetes on both sides of the family. SOCIAL HISTORY: No smoking, alcohol, or drug use. REVIEW OF SYSTEMS: As per HPI. LABORATORY DATA: Sodium 135, potassium 3.9, chloride 102, bicarb 24, BUN 9, creatinine 0.8, and glucose of 234. Calcium 9.4. Lipase 1243. A1c of 11.3. TSH of 3.2. PHYSICAL EXAMINATION: GENERAL: She is awake and alert. VITAL SIGNS: Blood pressure is 131/90, pulse 76, temperature of 98.2 degrees, and respiratory rate of 20. HEENT: Pupils are equal and reactive to light. Sclerae anicteric. NECK: No JVD. No thyromegaly. No bruit. LUNGS: Clear. HEART: Regular rate and rhythm. ABDOMEN: Positive bowel sounds. EXTREMITIES: No clubbing, cyanosis, or edema. DIAGNOSES: 1. New onset diabetes, progressed from prediabetic. 2. Morbid obesity. 3. Hyperlipidemia. 4. Pancreatitis. PLAN: 1. Start Levemir 14 units daily. 2. Continue metformin 500 mg t.i.d. 3. Continue NovoLog sliding scale a.c. and at bedtime. 4. I would consider repeating the lipase. 5. Consider adding statin. 6. I will follow the patient during hospital stay. Thank you, Dr. Dumont, for the courtesy of this consultation. Tra Valdez M.D. DR: GRETA JOB#: [id number] CC:
[2018-07-19] VITALS: BP 125/84
[2018-07-19 04:39] VITALS: BP 124/84
[2018-07-19] MEDS: metFORMIN 500mg tab ORAL SCH ×2 (05:52→12:17)
[2018-07-19] MEDS: NovoLOG Insulin Flexpen SUBQ SCH ×2 (05:59→12:18)
--- NOTE | 2018-07-19 07:12 | General Progress Note ---
Assessment/Plan Problem List: (1) Uncontrolled diabetes mellitus ICD Codes: E11.65 - Type 2 diabetes mellitus with hyperglycemia SNOMED: 332556213, 62104509 (2) Yeast infection ICD Codes: B37.9 - Candidiasis, unspecified SNOMED: 8008175 (3) Elevated lipase ICD Codes: R74.8 - Abnormal levels of other serum enzymes SNOMED: 530784130 Assessment/Plan continue Levemir 14 units daily (Rx in chart) continue Metformin 500 mg tid (Rx by Dr Dumont in chart) continue NISS - no need for Novolog after discharge Subjective Allergies: Coded Allergies: No Known Allergies (Unverified , 07/15/18) All Systems: reviewed and negative except above Subjective events noted Objective Last 24 Hour Vital Signs Date Time Temp Pulse Resp B/P (MAP) Pulse Ox O2 Delivery O2 Flow Rate FiO2 07/19/18 04:39 98.1 78 20 124/84 (97) 97 07/19/18 00:00 98.1 79 20 125/84 (98) 96 07/18/18 21:00 Room Air 07/18/18 20:48 82 18 Room Air 21 07/18/18 20:17 98.3 80 18 123/82 (96) 96 07/18/18 16:00 98.1 85 20 128/89 (102) 100 07/18/18 12:10 135/86 (102) 07/18/18 12:00 97.5 89 20 152/100 (117) 97 07/18/18 10:56 98.2 07/18/18 09:15 Room Air 07/18/18 08:19 72 18 Room Air 21 07/18/18 08:01 98.2 76 20 131/90 (104) 98 Intake and Output 07/18/18 07/19/18 19:00 07:00 Intake Total 480 ml 400 ml Balance 480 ml 400 ml Intake Oral 480 ml 400 ml # Voids 1 3 Height (Feet): 5 Height (Inches): 5.00 Weight (Pounds): 240 General Appearance: no apparent distress Neck: normal alignment Cardiovascular: normal rate Respiratory/Chest: lungs clear Abdomen: normal bowel sounds Pelvis: normal external exam Objective Current Medications Medications (Trade) Dose Ordered Sig/Sergio Route PRN Reason Start Time Stop Time Status Last Admin Dose Admin Acetaminophen (Tylenol) 650 mg Q4H PRN ORAL fever 07/15/18 20:30 08/14/18 20:29 07/18/18 10:26 Al Hydroxide/Mg Hydroxide (Mylanta II) 30 ml Q6H PRN ORAL dyspepsia 07/15/18 20:30 08/14/18 20:29 Albuterol/ Ipratropium (Albuterol/ Ipratropium) 3 ml Q4H PRN HHN Shortness of Breath 07/15/18 20:30 07/20/18 20:29 Clonidine HCl (Catapres Tab) 0.1 mg Q4H PRN ORAL sbp more than 160 07/15/18 20:30 08/14/18 20:29 Dextrose (Dextrose 50%) 25 ml Q30M PRN IV Hypoglycemia 07/18/18 10:15 08/17/18 10:14 Dextrose (Dextrose 50%) 50 ml Q30M PRN IV Hypoglycemia 07/18/18 10:15 08/17/18 10:14 Fluconazole (Diflucan) 150 mg DAILY ORAL 07/17/18 09:00 07/24/18 08:59 07/18/18 08:52 Heparin Sodium (Porcine) (Heparin 5000 units/ml) 5,000 units EVERY 12 HOURS SUBQ 07/15/18 21:00 08/14/18 20:59 Insulin Aspart (NovoLOG) BEFORE MEALS AND HS SUBQ 07/15/18 21:00 08/14/18 20:59 07/19/18 05:59 Insulin Detemir (Levemir) 14 units DAILY SUBQ 07/18/18 11:00 08/17/18 10:59 07/18/18 11:09 Ketorolac Tromethamine (Toradol 30mg) 30 mg Q6H PRN IV moderate pain 4-6 07/15/18 20:30 07/20/18 20:29 Metformin HCl (Glucophage) 500 mg TIAC ORAL 07/15/18 17:15 08/14/18 17:14 07/19/18 05:52 Morphine Sulfate (Morphine Sulfate) 2 mg Q4H PRN IVP severe pain 7-10 07/15/18 20:30 07/22/18 20:29 Nitroglycerin (Ntg) 0.4 mg Q5M X 3 DOSES PRN SL Prn Chest Pain 07/15/18 20:30 08/14/18 20:29 Ondansetron HCl (Zofran) 4 mg Q6H PRN IVP Nausea & Vomiting 07/15/18 20:30 08/14/18 20:29 Polyethylene Glycol (Miralax) 17 gm HSPRN PRN ORAL Constipation 07/15/18 20:30 08/14/18 20:29 Sodium Chloride 1,000 ml @ 100 mls/hr Q10H IVLG 07/15/18 20:24 08/14/18 20:23 07/17/18 12:24 Temazepam (Restoril) 15 mg HSPRN PRN ORAL Insomnia 07/15/18 20:30 07/22/18 20:29 Item Value Date Time Bedside Blood Glucose 163 mg/dl H 07/19/18 0630 Bedside Blood Glucose 174 mg/dl H 07/18/18 2100 Bedside Blood Glucose 154 mg/dl H 07/18/18 1705 Bedside Blood Glucose 148 mg/dl H 07/18/18 1200 Bedside Blood Glucose 261 mg/dl H 07/18/18 0607 Tra Valdez MD Jul 19, 2018 07:12
[2018-07-19 07:39] LABS: BASOPHILS % (AUTO) 1.3 % (0.0-2.0); HEMATOCRIT 42.5 % (37.0-47.0); HEMOGLOBIN 14.5 G/DL (12.0-16.0); LYMPHOCYTES % (AUTO) 36.7 % (20.0-45.0); MEAN CORPUSCULAR VOLUME 80 FL (80-99); PLATELET COUNT 288 K/UL (150-450); RED BLOOD COUNT 5.31 M/UL (4.20-5.40); WHITE BLOOD COUNT 6.1 K/UL (4.8-10.8)
[2018-07-19 07:56] LABS: ANION GAP 6 mmol/L (5-15); BLOOD UREA NITROGEN 7 mg/dL (7-18); CALCIUM 9.1 MG/DL (8.5-10.1); CARBON DIOXIDE 27 MMOL/L (21-32); CHLORIDE 103 MMOL/L (98-107); CREATININE 0.8 MG/DL (0.55-1.30); POTASSIUM 3.8 MMOL/L (3.5-5.1); SODIUM 136 MMOL/L (136-145)
[2018-07-19 08:00] VITALS: BP 124/84
[2018-07-19] MEDS: Heparin 5000 units/ml inj SUBQ SCH (09:00)
[2018-07-19] MEDS: Fluconazole 100mg tab ORAL SCH (09:56)
[2018-07-19] MEDS: Levemir Flexpen SUBQ SCH (09:57)
--- NOTE | 2018-07-19 11:30 | Infectious Diseases Prog Note ---
Assessment/Plan Assessment/Plan ASSESSMENT: The patient is a 38-year-old female with, Sarai vaginitis (based on the patient's history) Mixed growth urine culture :contaminant Normal white blood cells. Obesity. Diabetes. Afebrile. PLAN: DC Diflucan 150 mg x 3 doses, Monitor CBC ./ BMP Subjective Allergies: Coded Allergies: No Known Allergies (Unverified , 07/15/18) Subjective comfortable Objective Vital Signs Last 24 Hour Vital Signs Date Time Temp Pulse Resp B/P (MAP) Pulse Ox O2 Delivery O2 Flow Rate FiO2 07/19/18 09:00 Room Air 07/19/18 08:00 97.7 91 18 124/84 (97) 97 07/19/18 04:39 98.1 78 20 124/84 (97) 97 07/19/18 00:00 98.1 79 20 125/84 (98) 96 07/18/18 21:00 Room Air 07/18/18 20:48 82 18 Room Air 21 07/18/18 20:17 98.3 80 18 123/82 (96) 96 07/18/18 16:00 98.1 85 20 128/89 (102) 100 07/18/18 12:10 135/86 (102) 07/18/18 12:00 97.5 89 20 152/100 (117) 97 Height (Feet): 5 Height (Inches): 5.00 Weight (Pounds): 240 HEENT: atraumatic Respiratory/Chest: lungs clear Cardiovascular: normal rate Abdomen: normal bowel sounds Laboratory Tests Test 07/19/18 06:55 White Blood Count 6.1 K/UL (4.8-10.8) Red Blood Count 5.31 M/UL (4.20-5.40) Hemoglobin 14.5 G/DL (12.0-16.0) Hematocrit 42.5 % (37.0-47.0) Mean Corpuscular Volume 80 FL (80-99) Mean Corpuscular Hemoglobin 27.3 PG (27.0-31.0) Mean Corpuscular Hemoglobin Concent 34.1 G/DL (32.0-36.0) Red Cell Distribution Width 12.0 % (11.6-14.8) Platelet Count 288 K/UL (150-450) Mean Platelet Volume 8.2 FL (6.5-10.1) Neutrophils (%) (Auto) 54.0 % (45.0-75.0) Lymphocytes (%) (Auto) 36.7 % (20.0-45.0) Monocytes (%) (Auto) 6.0 % (1.0-10.0) Eosinophils (%) (Auto) 2.0 % (0.0-3.0) Basophils (%) (Auto) 1.3 % (0.0-2.0) Sodium Level 136 MMOL/L (136-145) Potassium Level 3.8 MMOL/L (3.5-5.1) Chloride Level 103 MMOL/L (98-107) Carbon Dioxide Level 27 MMOL/L (21-32) Anion Gap 6 mmol/L (5-15) Blood Urea Nitrogen 7 mg/dL (7-18) Creatinine 0.8 MG/DL (0.55-1.30) Estimat Glomerular Filtration Rate > 60 mL/min (>60) Glucose Level 173 MG/DL (74-106) H Calcium Level 9.1 MG/DL (8.5-10.1) Current Medications Medications (Trade) Dose Ordered Sig/Sergio Route PRN Reason Start Time Stop Time Status Last Admin Dose Admin Acetaminophen (Tylenol) 650 mg Q4H PRN ORAL fever 07/15/18 20:30 08/14/18 20:29 07/18/18 10:26 Al Hydroxide/Mg Hydroxide (Mylanta II) 30 ml Q6H PRN ORAL dyspepsia 07/15/18 20:30 08/14/18 20:29 Albuterol/ Ipratropium (Albuterol/ Ipratropium) 3 ml Q4H PRN HHN Shortness of Breath 07/15/18 20:30 07/20/18 20:29 Clonidine HCl (Catapres Tab) 0.1 mg Q4H PRN ORAL sbp more than 160 07/15/18 20:30 08/14/18 20:29 Dextrose (Dextrose 50%) 25 ml Q30M PRN IV Hypoglycemia 07/18/18 10:15 08/17/18 10:14 Dextrose (Dextrose 50%) 50 ml Q30M PRN IV Hypoglycemia 07/18/18 10:15 08/17/18 10:14 Fluconazole (Diflucan) 150 mg DAILY ORAL 07/17/18 09:00 07/24/18 08:59 07/19/18 09:56 Heparin Sodium (Porcine) (Heparin 5000 units/ml) 5,000 units EVERY 12 HOURS SUBQ 07/15/18 21:00 08/14/18 20:59 Insulin Aspart (NovoLOG) BEFORE MEALS AND HS SUBQ 07/15/18 21:00 08/14/18 20:59 07/19/18 05:59 Insulin Detemir (Levemir) 14 units DAILY SUBQ 07/18/18 11:00 08/17/18 10:59 07/19/18 09:57 Ketorolac Tromethamine (Toradol 30mg) 30 mg Q6H PRN IV moderate pain 4-6 07/15/18 20:30 07/20/18 20:29 Metformin HCl (Glucophage) 500 mg TIAC ORAL 07/15/18 17:15 08/14/18 17:14 07/19/18 05:52 Morphine Sulfate (Morphine Sulfate) 2 mg Q4H PRN IVP severe pain 7-10 07/15/18 20:30 07/22/18 20:29 Nitroglycerin (Ntg) 0.4 mg Q5M X 3 DOSES PRN SL Prn Chest Pain 07/15/18 20:30 08/14/18 20:29 Ondansetron HCl (Zofran) 4 mg Q6H PRN IVP Nausea & Vomiting 07/15/18 20:30 08/14/18 20:29 Polyethylene Glycol (Miralax) 17 gm HSPRN PRN ORAL Constipation 07/15/18 20:30 08/14/18 20:29 Sodium Chloride 1,000 ml @ 100 mls/hr Q10H IVLG 07/15/18 20:24 08/14/18 20:23 07/17/18 12:24 Temazepam (Restoril) 15 mg HSPRN PRN ORAL Insomnia 07/15/18 20:30 07/22/18 20:29 Chris Collins MD Jul 19, 2018 11:30
[2018-07-19] MEDS ORDERED: GLUCOPHAGE500 MG ORAL (11:51)
[2018-07-19] MEDS ORDERED: NOVOLOG100 UNITS1 SUBQ (11:51)
[2018-07-19] MEDS ORDERED: LEVEMIR FL100 UNIT/1 SUBQ (11:51)
[2018-07-19 12:00] VITALS: BP 130/90
[2018-07-19] MEDS ORDERED: LEVEMIR FL100 UNIT/2 SQ (14:02)
[2018-07-19] MEDS ORDERED: METFORMIN HCL500 M1 ORAL (14:03)
--- NOTE | 2018-07-21 12:31 | Discharge Summary ---
Discharge Summary Discharge Summary _ DATE OF ADMISSION: 07/15/2018 DATE OF DISCHARGE: 07/19/2018 REASON FOR ADMISSION: 47 years old female with past medical history of morbid obesity, diabetes mellitus type 2, noncompliant with metformin, presented to the hospital , complaining of vaginal discharge with pruritus and headache. No fever no chills. Upon evaluation vital signs reveal no fever. Laboratory workup revealed glucose 325. No evidence of ketoacidosis. Lipase 1243. No leukocytosis stable hemoglobin and hematocrit. Urinalysis was+4 glucose , +1 ketone, moderate Bacteria and many epithelial cells. Patient admitted with diagnosis of uncontrolled diabetes , elevated lipase , possible pancreatitis, morbid obesity, possible UTI. CONSULTANTS: ID specialist Dr. Collins environmental compliance officer Dr. Valdez [facility] COURSE: Patient admitted to medical surgical floor. Patient started on IV hydration. Pressing Department Supervisor consulted. Blood sugar was managed with long-acting insulin ,metformin and sliding scale of short acting insulin as needed. Blood sugar stabilized. Hemoglobin A1c 11.3 , likely due to noncompliance. Patient was instructed on strict compliance with medication regimen. Upon discharge patient to be continued with metformin and long-acting insulin , no need for Novolog after discharge. Prescription provided. Infectious disease specialist followed. Urine cleared culture revealed mixed urogenital contaminants. Per patient history , patient had Sarai vaginitis. Patient was compelled 3 doses of Diflucan . Symptomaric tretament provided. Lipase trending down ,prior to discharge 943. No complaints of abdominal pain. DVT prophylaxis provided. Bowel regimen instituted. Renal parameters and electrolytes were closely monitored, electrolytes corrected as needed. Lipid panel revealed evidence of mixed hyperlipidemia with triglycerides 170, total cholesterol 214 and LDL 152. Patient declined statin at this time. Patient was counseled on low-fat low-cholesterol cardiac diabetic diet and other therapeutic life style changes tp increase activity and lsoe weight. Patient to repeat lipid panel in 3 months . Patient was recommended to start statin as outpatient if no improvement in lipid panel. Patient clinically stabilized and was ready for discharge FINAL DIAGNOSES: Diabetes mellitus out of control with hemoglobin A1c 11.3 Sarai vaginitis Morbid obesity Elevated lipase, trending down Mixed hyperlipidemia /per labs Noncompliance DISCHARGE MEDICATIONS: See Medication Reconciliation list. DISCHARGE INSTRUCTIONS: Patient was discharged home with home health services. Follow up with primary care provider in one week. Patient was consult to comply with medication regimen patient was consult on therapeutic lifestyle changes I have been assigned to dictate discharge summary for this account. I was not involved in the patient's management. Matilda Chapman NP Jul 21, 2018 12:31
== END 2018-07-19 16:09 | disposition home or self-care (01) | DRG 420 ==
LOC: EMR 16:33 → 3E 19:11 → EDBEDREQ 19:51
DX: E11.65 Type 2 diabetes mellitus with hyperglycemia (principal); E66.01 Morbid (severe) obesity due to excess calories; B37.3 Candidiasis of vulva and vagina; Z91.14 Patient's other noncompliance with medication regimen; E78.2 Mixed hyperlipidemia; R74.8 Abnormal levels of other serum enzymes
CPT/HCPCS: 36415; 80048; 80053; 80061; 81003; 81025; 82962; 83036; 83690; 83735; 84100; 84443; 85025; 87086; 94664; 96360; 96361; 96372; 99285; J1815; S5561

== ENCOUNTER 2019-11-14 19:07 | Emergency (ER) | payer MEDICAID ==
[~2019-11-14] VITALS: Ht 165.1 cm; Wt 99.8 kg
[~2019-11-14 19:07] MED LIST: GLUCOPHAGE500 MG ORAL; LEVEMIR FL100 UNIT/1 SUBQ; LEVEMIR FL100 UNIT/2 SQ; METFORMIN HCL500 M1 ORAL; NOVOLOG100 UNITS1 SUBQ
--- NOTE | 2019-11-14 19:17 | NUR ---
ED Nurse Note: called pt, not in waiting room
[2019-11-14 19:19] VITALS: BP 160/95
[2019-11-14 19:40] VITALS: BP 160/95
[2019-11-14] MEDS ORDERED: Methocarbamol 750mg tab ORAL ONE (20:00)
[2019-11-14] MEDS ORDERED: Ketorolac 30mg Inj IM ONE (20:00)
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
[2019-11-14] MEDS ORDERED: ROBAXIN-500MG ORAL (20:04)
[2019-11-14] MEDS ORDERED: LIDODERM700 M1 TOPIC (20:04)
--- NOTE | 2019-11-14 20:30 | NUR ---
ER DISCHARGE NOTE: Patient is cleared to be discharged per ERMD, pt is aox4, on room air, with stable vital signs. pt was given dc and prescription instructions, pt was able to verbalize understanding, pt id band removed without complications. pt is able to ambulate with steady gait. pt took all belongings.
== END 2019-11-14 20:32 | disposition home or self-care (01) ==
LOC: EMR 19:40
DX: S16.1XXA Strain of muscle, fascia and tendon at neck level, initial encounter (principal); S29.012A Strain of muscle and tendon of back wall of thorax, initial encounter; V43.52XA Car driver injured in collision with other type car in traffic accident, initial encounter; Y92.410 Unspecified street and highway as the place of occurrence of the external cause; E11.9 Type 2 diabetes mellitus without complications
CPT/HCPCS: 96372; J1885; Z7502; 99283